=== PATIENT | male | born 1990 | race African-American/Black ===

== ENCOUNTER 2017-03-14 17:57 | Emergency (ER) | payer MEDICAID ==
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
--- NOTE | 2017-03-15 08:20 | Diagnostic Imaging Report ---
Cervical spine (3 views) HISTORY: Pain Alignment is normal. Disc spaces are maintained. No focal lesions. No fractures. The prevertebral soft tissues appear normal. IMPRESSION: No acute abnormalities
== END 2017-03-14 19:25 | disposition home or self-care (01) ==
LOC: ER 17:57
DX: S19.9XXA Unspecified injury of neck, initial encounter (principal); F17.200 Nicotine dependence, unspecified, uncomplicated; X58.XXXA Exposure to other specified factors, initial encounter; Y93.89 Activity, other specified; Y92.89 Other specified places as the place of occurrence of the external cause; Y99.8 Other external cause status
CPT/HCPCS: 72040-TC; J1885; Z7502; Z7610

== ENCOUNTER 2017-04-10 13:36 | Emergency (ER) | payer MEDICAID ==
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
--- NOTE | 2017-04-11 10:48 | Diagnostic Imaging Report ---
CT scan of the brain without contrast History: Trauma Total DLP equals 543 CTDI equals 33.1 Axial sections were obtained from the base of the skull to the vertex. There is a normal ventricular system size. No focal parenchymal lesions are seen. No evidence of any mass effect or shift of midline structures. No extra-axial masses or abnormal fluid collections. Impression: Negative examination.
== END 2017-04-10 15:00 | disposition home or self-care (01) ==
LOC: ER 13:36
DX: R51 Headache (principal)
CPT/HCPCS: 70450-TC; Z7502

== ENCOUNTER 2017-07-13 11:19 | Emergency (ER) | payer MEDICAID ==
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
== END 2017-07-13 14:42 | disposition home or self-care (01) ==
LOC: ER 11:19
DX: K05.10 Chronic gingivitis, plaque induced (principal); K04.7 Periapical abscess without sinus; F17.210 Nicotine dependence, cigarettes, uncomplicated; Z88.5 Allergy status to narcotic agent; Z91.018 Allergy to other foods
CPT/HCPCS: Z7502